=== PATIENT | female | born 2000 | race Caucasian/White ===

== ENCOUNTER 2023-06-04 06:07 | Day surgery (SDC) | payer OTHER ==
[~2023-06-04] VITALS: Ht 154.9 cm; Wt 58.1 kg
--- NOTE | ~2023-06-04 | OR ---
[facility] [address] [place], [place] [address] Draft DATE OF OPERATION: 06/04/2023 SURGEON: Shayna Madden MD PREOPERATIVE DIAGNOSIS: Missed . POSTOPERATIVE DIAGNOSIS: Missed . PROCEDURE: Suction D and C. ANESTHESIA: MAC. ESTIMATED BLOOD LOSS: 200 mL. DRAINS: None. INDICATIONS AND FINDINGS: The patient is a 23-year-old female 1, who was diagnosed with missed approximately two weeks ago. She has tried four courses of Cytotec without any response to completing the miscarriage and at this point, desires D and C. At the time of surgery, exam under anesthesia revealed a uterus approximately 10 week size. The cervix was closed. There was large amount of tissue within the uterus. DESCRIPTION OF PROCEDURE: The patient was prepped and draped in the dorsal lithotomy position. An open-sided speculum was placed. The anterior lip of the cervix was visualized and grasped with a single-tooth tenaculum. The endocervical canal was then easily dilated to a #9 dilator. A #9 curved suction curette was then placed and a large amount of tissue removed in this manner. A small curette was then used to remove a significant amount of additional tissue. Sharp curette and suction curettage were alternated until the cavity felt clean and contracted. Following this, the tenaculum was removed. The tenaculum site had some bleeding and this was controlled with a ring forcep. She continued to have some oozing and trickling of blood from the uterus itself and additional sutures were placed at 3 and 9 o'clock using 0 chromic to aid in hemostasis. Following this, good hemostasis was PATIENT NAME: FADIA TERRY OPERATIVE REPORT DATE OF : 02 REPORT #: [id number] PHYSICIAN: SHAYNA MADDEN MD PCP: PRAKASH MEZA REPORT IS CONFIDENTIAL AND NOT TO BE RELEASED WITHOUT AUTHORIZATION [facility] [address] [place] [id number] Draft noted. Instruments were removed from the vagina and she was taken to the recovery room in good condition. Shayna Madden MD PJW/TERENCE /[id number] Copies: ~ PATIENT NAME: FADIA TERRY OPERATIVE REPORT DATE OF : 02 REPORT #: [id number] PHYSICIAN: SHAYNA MADDEN MD PCP: PRAKASH MEZA REPORT IS CONFIDENTIAL AND NOT TO BE RELEASED WITHOUT AUTHORIZATION
[~2023-06-04 06:07] MED LIST: CYTOTEC200 MCG PO; EFFEXOR XR150 MG PO; PRENATAL MULTI1 EAC3 PO
[2023-06-04 06:20] VITALS: BP 126/73
--- NOTE | 2023-06-04 08:01 | NUR ---
06/04/23 0801 Carlie Langston PT TO PACU SLEEPIMG O2 AT 6 L VIA MASK. FOGGING NOTED IN MASK.
--- NOTE | 2023-06-04 08:08 | NUR ---
PT GONE. CHECKED [facility] FAMILY MEMBER IN [place]. DENIED NEEDS. INIDCATED PAGER HAD BEEN SUPPLIED.
[2023-06-04 08:24] VITALS: BP 122/61
== END 2023-06-04 08:35 | disposition home or self-care (01) ==
LOC: DS 06:07 → OPS 06:07 → DS 07:30 → OPS 08:35
PROVIDERS: ATTEND Obstetrics & Gynecology
PROC: 10D17ZZ Extraction of Products of Conception, Retained, Via Natural or Artificial Opening (ICD-10-PCS; principal; 2023-06-04 07:30)
DX: O02.1 Missed abortion (principal); Z20.2 Contact with and (suspected) exposure to infections with a predominantly sexual mode of transmission
CPT/HCPCS: 36415; 85025; J0131; J0690; J1100; J1885; J2001; J2210; J2250; J2405; J2590; J2704; J2765; J3010; J7121

== ENCOUNTER 2024-04-24 10:36 | Inpatient (IN) | payer OTHER ==
[~2024-04-24 10:36] MED LIST changes: +TERBUTALINE SULFATE 1 MG/ML AMP SUB-Q ONE
[2024-04-24] MEDS ORDERED: LACTATED RINGER'S 1,000 ML IV PRN (11:15)
[2024-04-24] MEDS ORDERED: CALCIUM CARBONATE 500 MG CHEW PO PRN ×2 (11:15→17:30)
[2024-04-24] MEDS ORDERED: ondansetron HCL 4 MG/2 ML VIAL IV PRN (11:15)
[2024-04-24] MEDS ORDERED: LIDOCAINE 2% VISCOUS 6 ML SYR TOP ONE ×4 (11:15→17:30)
[2024-04-24] MEDS ORDERED: MAGNESIUM HYDROXIDE/AL HYDROX 30 ML CUP PO PRN ×2 (11:15→17:30)
[2024-04-24] MEDS ORDERED: OXYTOCIN/DEXTROSE 5% 20 UNITS/100 ML BAG IV SCH (11:15)
[2024-04-24 11:25] LABS: HEMATOCRIT 39.5 % (35.0-50.0); HEMOGLOBIN 13.4 g/dL (12.0-18.0); MCHC 34.1 g/dl (30-36); MCV 94.1 fl (81-99); RBC 4.2 M/ul (4.3-5.7); RDW 13.7 (10.5-15.0)
[2024-04-24 11:34] LABS: AMPHETAMINES, URINE NEGATIVE (NEGATIVE); BARBITURATES, URINE NEGATIVE (NEGATIVE); BENZODIAZEPINE, URINE NEGATIVE (NEGATIVE); BUPRENORPHINE, URINE NEGATIVE (NEGATIVE); CANNABINOID, URINE NEGATIVE (NEGATIVE); COCAINE, URINE NEGATIVE (NEGATIVE); ECSTASY, URINE NEGATIVE (NEGATIVE); FENTANYL, URINE NEGATIVE (NEGATIVE); METHADONE, URINE NEGATIVE (NEGATIVE); OPIATES, URINE NEGATIVE (NEGATIVE); OXYCODONE, URINE NEGATIVE (NEGATIVE); PHENCYCLIDINE, URINE NEGATIVE (NEGATIVE)
[2024-04-24] MEDS ORDERED: ROPIVACAINE 0.2% 200 ML BAG ONE (11:38)
[2024-04-24] MEDS ORDERED: fentaNYL citrate 100 MCG/2 ML VIAL ONE (11:38)
[2024-04-24 12:00] LABS: ABO A; RH POSITIVE
[2024-04-24 12:01] LABS: ANTIBODY SCREEN NEGATIVE
[2024-04-24] MEDS ORDERED: LACTATED RINGER'S 2,000 ML IV ONE (12:15)
[2024-04-24] MEDS ORDERED: LACTATED RINGER'S 500 ML IV PRN (12:15)
[2024-04-24] MEDS ORDERED: ePHEDrine sulfate 5 MG/ML SYRINGE IV PRN (12:15)
[2024-04-24] MEDS ORDERED: ROPIVACAINE 0.2% 200 ML BAG EPIDURAL SCH (12:15)
--- NOTE | 2024-04-24 12:35 | PR ---
[facility] [address] [facility] [place], [place] [address] Signed Progress Notes IP Datetime Report Generated by CPN: 04/24/2024 12:35 PROGRESS NOTES: [id number] Impression: Reassuring Heart Rate Procedures: Artificial ROM; Sterile Vag Exam Plan: Continue Present Management VITAL SIGNS: [id number] Vital Signs: Reviewed; Within Normal Limits EXAM: [id number] Dilatation: 5.0 Effacement: 90 Station: -2 Contractions: not picking up well MEMBRANES: [id number] ROM Note: amnisure swab collected. Pt tolerated well. Comments: Much more comfortable after epidural. Will continue. FETUS A: [id number] FHR Baseline: 140 Variability: Moderate 6-25bpm Accelerations: 15X15 Decelerations: None FHR Category: Category I Presentation: Vertex FETUS B: [id number] Signing Physician: Shayna Madden MD Copies: ~ *Electronically Signed* 04/24/24 1235 SHAYNA MADDEN MD PATIENT NAME: TERRY,FADIA BIJU PROGRESS NOTE DATE OF : 02 PHYSICIAN: SHAYNA MADDEN MD RPT #: [id number] REPORT IS CONFIDENTIAL AND NOT TO BE RELEASED WITHOUT AUTHORIZATION
--- NOTE | 2024-04-24 13:02 | PR ---
[facility] [address] [facility] [place], [place] [address] Signed Progress Notes IP Datetime Report Generated by CPLyubvo: 04/24/2024 13:02 PROGRESS NOTES: [id number] Impression: Non-reassuring Heart Rate Procedures: Scalp Electrode; Sterile Vag Exam Plan: Continue Present Management Other Plans: continue position changes VITAL SIGNS: [id number] Vital Signs: Reviewed; Within Normal Limits EXAM: [id number] Dilatation: 5.0 Effacement: 90 Station: -2 Contractions: not picking up well MEMBRANES: [id number] ROM Note: amnisure swab collected. Pt tolerated well. Comments: Pt w/ prolonged decel though currently improved w/ position changes. Will continue to closely monitor. FETUS A: [id number] FHR Baseline: 140 Variability: Minimal - >Undetectable to <=5bpm Accelerations: 15X15 Decelerations: Prolonged FHR Category: Category II Presentation: Vertex FETUS B: [id number] Signing Physician: Shayna Madden MD Copies: ~ *Electronically Signed* 04/24/24 1302 SHAYNA MADDEN MD PATIENT NAME: FADIA TERRY [facility] PROGRESS NOTE DATE OF : 02 PHYSICIAN: SHAYNA MADDEN MD RPT #: [id number] REPORT IS CONFIDENTIAL AND NOT TO BE RELEASED WITHOUT AUTHORIZATION
--- NOTE | 2024-04-24 14:12 | PR ---
[facility] [address] [place], [place] [address] Signed Progress Notes IP Datetime Report Generated by CPLyubov: 04/24/2024 14:12 PROGRESS NOTES: [id number] Impression: Normal Progression of Labor; Non-reassuring Heart Rate Procedures: Sterile Vag Exam Plan: Tocolysis Other Plans: continue position changes VITAL SIGNS: [id number] Vital Signs: Reviewed; Within Normal Limits EXAM: [id number] Dilatation: 7.0 Effacement: 95 Station: -2 Contractions: not picking up well MEMBRANES: [id number] ROM Note: amnisure swab collected. Pt tolerated well. Comments: Progressing well. Prolonged decel which has now recovered. Will give subq terb now to temporarily stop contractions and allow for recovery. Will closely monitor as has been reassuring previously. FETUS A: [id number] FHR Baseline: 140 Variability: Moderate 6-25bpm Accelerations: 15X15 Decelerations: Prolonged FHR Category: Category II Presentation: Vertex FETUS B: [id number] Signing Physician: Shayna Madden MD Copies: ~ *Electronically Signed* 04/24/24 1412 SHAYNA MADDEN MD PATIENT NAME: FADIA TERRY [facility] PROGRESS NOTE DATE OF : 02 PHYSICIAN: SHAYNA MADDEN MD RPT #: [id number] REPORT IS CONFIDENTIAL AND NOT TO BE RELEASED WITHOUT AUTHORIZATION
--- NOTE | 2024-04-24 15:44 | PR ---
[facility] [address] [place] [facility] [place] [place] [address] Signed Progress Notes IP Datetime Report Generated by CPN: 04/24/2024 15:44 PROGRESS NOTES: [id number] Impression: Normal Progression of Labor Procedures: Sterile Vag Exam Plan: Continue Present Management Other Plans: continue position changes VITAL SIGNS: [id number] Vital Signs: Reviewed; Within Normal Limits EXAM: [id number] Dilatation: 9.5 Effacement: 100 Station: -2 Contractions: not picking up well MEMBRANES: [id number] ROM Note: amnisure swab collected. Pt tolerated well. Comments: Progressing well. Will continue close observation of status as intermittent poor variability and decels. FETUS A: [id number] FHR Baseline: 140 Variability: Moderate 6-25bpm Accelerations: 15X15 Decelerations: Prolonged FHR Category: Category II Presentation: Vertex FETUS B: [id number] Signing Physician: Shayna Madden MD Copies: ~ *Electronically Signed* 04/24/24 1544 SHAYNA MADDEN MD PATIENT NAME: RA MAARKOSTA BIJU PROGRESS NOTE DATE OF : 02 PHYSICIAN: SHAYNA MADDEN MD RPT #: [id number] REPORT IS CONFIDENTIAL AND NOT TO BE RELEASED WITHOUT AUTHORIZATION
[2024-04-24] MEDS ORDERED: TRANEXAMIC ACID IN NACL,ISO-OS 0 ML IV ONE (17:04)
[2024-04-24] MEDS ORDERED: OXYTOCIN/0.9 % SODIUM CHLORIDE 500 ML IV ONE (17:05)
[2024-04-24] MEDS ORDERED: ACETAMINOPHEN 325 MG TAB PO PRN (17:30)
[2024-04-24] MEDS ORDERED: HYDROCODONE/ACETA 5/325 TAB PO PRN (17:30)
[2024-04-24] MEDS ORDERED: IBUPROFEN 600 MG TAB PO PRN (17:30)
[2024-04-24] MEDS ORDERED: MAGNESIUM HYDROXIDE 30 ML UDC PO PRN (17:30)
[2024-04-24] MEDS ORDERED: OXYTOCIN/0.9 % SODIUM CHLORIDE 500 ML IV SCH (17:30)
[2024-04-24] MEDS ORDERED: BENZOCAINE 60 ML AEROSOL TOP PRN (17:30)
[2024-04-24] MEDS ORDERED: WITCH HAZEL/GLYCERIN 1 EA PAD TOP PRN (17:30)
[2024-04-24] MEDS ORDERED: HYDROCORTISONE ACETATE 25 MG SUPP PR PRN (17:30)
[2024-04-24] MEDS ORDERED: METHYLERGONOVINE MALEATE 0.2 MG/ML AMP IM ONE (17:45)
[2024-04-24] MEDS ORDERED: SENNOSIDES/DOCUSATE 1 EA TAB PO SCH (21:00)
[2024-04-25 05:16] LABS: HEMATOCRIT 34.1 % (35.0-50.0); HEMOGLOBIN 11.6 g/dL (12.0-18.0); MCH 32.5 (27-36); MCHC 34.2 g/dl (30-36); MCV 95.1 fl (81-99); RBC 3.58 M/ul (4.3-5.7); RDW 14.1 (10.5-15.0)
--- NOTE | 2024-04-25 08:08 | PR ---
[facility] [address] [facility] [place], [place] [address] Signed PP Progress Notes Datetime Report Generated by CPN: 04/25/2024 08:07 SUBJECTIVE: [id number] Pain: Within Normal Limits Vital Signs: [id number] Vital Signs: Reviewed; Within Normal Limits EXAM: Ongoing Cardiovascular: Not Done Respiratory: Not Done Abdomen/Uterus: Abnormal Lochia: Normal Vulva/Perineum: Not Done Breasts: Not Done CVA Tenderness: Not Done Extremities: Normal Incision: Not Applicable Progress: Normal Exam Comments: Fundus firm, NT @ U-1. H/H 11.6/34.1, WBC 13.8, plat 158k IMPRESSION/PLAN/PROCEDURES: [id number] Impression: Normal Progression Plan: Continue Present Management Progress Notes: Doing well. Will continue present management with probable am discharge. Signing Physician: Shayna Madden MD Copies: ~ *Electronically Signed* 04/25/24806 SHAYNA MADDEN MD PATIENT NAME: FADIA TERRY SAEIDBIJU PROGRESS NOTE DATE OF : 02 PHYSICIAN: SHAYNA MADDEN MD RPT #: [id number] REPORT IS CONFIDENTIAL AND NOT TO BE RELEASED WITHOUT AUTHORIZATION
--- NOTE | 2024-04-26 09:27 | PR ---
[facility] [address] [place] [facility] [place], [place] [address] Signed PP Progress Notes Datetime Report Generated by CPN: 04/26/2024 09:27 SUBJECTIVE: [id number] Pain: Within Normal Limits Vital Signs: [id number] Vital Signs: Reviewed; Within Normal Limits EXAM: Ongoing Cardiovascular: Not Done Respiratory: Not Done Abdomen/Uterus: Abnormal Lochia: Normal Vulva/Perineum: Not Done Breasts: Not Done CVA Tenderness: Not Done Extremities: Normal Incision: Not Applicable Progress: Normal Exam Comments: Fundus firm, NT @ U-2. IMPRESSION/PLAN/PROCEDURES: [id number] Impression: Normal Progression Plan: Discharge Procedures: None Progress Notes: Doing well. She is ready for D/C. Signing Physician: Shayna Madden MD Copies: ~ *Electronically Signed* 04/26/24926 SHAYNA MADDEN MD PATIENT NAME: FADIA TERRY PROGRESS NOTE DATE OF : 02 PHYSICIAN: SHAYNA MADDEN MD RPT #: [id number] REPORT IS CONFIDENTIAL AND NOT TO BE RELEASED WITHOUT AUTHORIZATION
== END 2024-04-26 11:30 | disposition home or self-care (01) | DRG 807 ==
LOC: FBCO 10:36 → FBC 10:55 → FBCO 04-26 10:51 → FBC 04-26 11:30
PROVIDERS: ADMIT Obstetrics & Gynecology; ATTEND Obstetrics & Gynecology
PROC: 10E0XZZ Delivery of Products of Conception, External Approach (ICD-10-PCS; principal; 2024-04-24)
PROC: 0KQM0ZZ Repair Perineum Muscle, Open Approach (ICD-10-PCS; 2024-04-24)
PROC: 3E0R3BZ Introduction of Anesthetic Agent into Spinal Canal, Percutaneous Approach (ICD-10-PCS; 2024-04-24)
PROC: 00HU33Z Insertion of Infusion Device into Spinal Canal, Percutaneous Approach (ICD-10-PCS; 2024-04-24)
PROC: 10907ZC Drainage of Amniotic Fluid, Therapeutic from Products of Conception, Via Natural or Artificial Opening (ICD-10-PCS; 2024-04-24)
DX: O76 Abnormality in fetal heart rate and rhythm complicating labor and delivery (principal); Z37.0 Single live birth; O77.0 Labor and delivery complicated by meconium in amniotic fluid; O70.1 Second degree perineal laceration during delivery; Z3A.39 39 weeks gestation of pregnancy
CPT/HCPCS: 01960; 36415; 80307; 85027; 86850; 86900; 86901; A9270; J2210; J2590; J2795; J3010; J3105; J7121